=== PATIENT | female | born 1970 | race Caucasian/White ===

== ENCOUNTER 2024-07-08 05:43 | Emergency (ER) | payer OTHER, SELFPAY ==
[2024-07-08 05:44] VITALS: BMI 30.7
[2024-07-08 05:51] VITALS: BP 145/69; PULSE 69; RESP 18; TEMP 36.6; O2SAT 96
--- NOTE | 2024-07-08 06:17 | PC.NURSE ---
PT CAME TO ER FOR C/O CP STARTED AT 0500, PRESSURE PAIN, NON RADIATING, PT THINKS SHE IS HAVING A HEART ATTACK.
--- NOTE | 2024-07-08 06:18 | EDNOTE_ITS ---
ED Chest Pain RME/HPI General Chief Complaint: Chest Pain Stated Complaint: PT STATED I AM HAVING A HEART ATTACK Time Seen by Provider: 07/08/24 06:04 Arrival date/time: 07/08/24 05:43 RME / HPI RME / HPI narrative: This section includes all my notes and documentations, including HPI, PE, and ED course. Howard Meier MD HPI: 53-year-old female here with chest pain. Currently, she reports her chest pain as 6/10. When asked about when her chest pain was 0/10, she reports the chest pain has not been 0/10 for months and years. No headache or dizziness. No neck pain or back pain. No shortness of breath. No abdominal pain. No pain in the limbs. No other complaints. ROS: All negative except as documented in HPI. Physical Exam: General: Alert and oriented. Eyes: Conjunctivae and lids clear. EOMI. PERRL. ENT: No nasal congestion. Neck: Supple. No carotid bruit. No JVD. Heart: RRR. Lungs: No respiratory distress. Good air movement. No rhonchi, wheezing, rales. Chest: No tenderness. Abdomen: Soft and nontender. Back: No tenderness. Legs: No clubbing, cyanosis, edema. Skin: Warm and dry. Neuro: Alert and oriented X 3. Cranial Nerves II-XII grossly intact. No peripheral motor deficits. Musculoskeletal: All major joints and bones are not tender with no limited ROM. I reviewed all diagnostic test results. My interpretation of the EKG is sinus rhythm with nonspecific ST?T changes. My review of the CT scan reports is no acute findings. My review of the GB ultrasound report is cholelithiasis. Blood tests and urine tests are unremarkable including negative troponin and D- dimer. TSH 0.02 (baseline per patient). At this point, diagnoses include chest pain of unclear urology and cholelithiasis. Treatment here included fentanyl. She felt much better. Recommended more outpatient cardiac workup and surgery for possible elective cholecystectomy. Based on my best medical judgment, made decision no further evaluation or treatment indicated at this time. Patient understands and agrees to the discharge instructions customized and printed, see below. Discharge instructions from Dr. Meier: 1. After extensive evaluation, there is no life-threatening condition.? Such as heart attack or pulmonary embolism (blood clots in your lungs) or pneumothorax (collapsed lung). 2. Your symptoms may be due to your gallstones. 3. See a private doctor on 07/10/2024. Ask to review all test results and official radiology reports, to make sure you receive all necessary follow-ups and monitoring. To make sure there is no serious underlying heart condition, ask to help you get more tests for your heart that cannot be done here in the ER.? Such as Holter Monitor (cardiac monitoring at home from a day to even a month), heart stress test (on treadmill or with medication), echocardiogram (imaging of your heart structures), heart catherization (checking for blockages in your heart arteries), and a referral to see a [employer]ice. Ask for a referral to see a surgeon to discuss elective surgery to remove your gallbladder. 4. Seek immediate medical care with worsening or with any concerns.?? Howard Meier MD Related Data Home Medications ?Medication ?Instructions ?Recorded ?Confirmed gabapentin 100 mg capsule 300 mg PO HS 11/27/18 10/18/23 levothyroxine 200 mcg tablet 200 mcg PO QDAY 11/27/18 10/18/23 (Synthroid) aspirin 81 mg tablet,delayed 81 mg PO QDAY 04/09/21 10/18/23 release hydrocodone 10 mg-acetaminophen 1 tab PO BID PRN Pain 04/09/21 10/18/23 325 mg tablet ipratropium 20 mcg-albuterol 100 1 puff inhalation BID 04/09/21 10/18/23 mcg/actuation mist for inhalation (Combivent Respimat) atorvastatin 80 mg tablet (Lipitor) 80 mg PO QPM 10/18/23 10/18/23 coenzyme Q10 100 mg capsule 200 mg PO HS 10/18/23 10/18/23 (CoQ-10) hydrochlorothiazide 25 mg tablet 25 mg PO QDAY 10/18/23 10/18/23 isosorbide mononitrate 60 mg 60 mg PO QDAY 10/18/23 10/18/23 tablet,extended release 24 hr metoprolol succinate 100 mg 100 mg PO QDAY 10/18/23 10/18/23 tablet,extended release 24 hr metoprolol succinate 50 mg 50 mg PO HS 10/18/23 10/18/23 tablet,extended release 24 hr ranolazine 500 mg tablet,extended 500 mg PO Q12H 10/18/23 10/18/23 release,12 hr Previous Rx's ?Medication ?Instructions ?Recorded clopidogrel 75 mg tablet 75 mg PO QDAY #30 tabs 04/11/21 Allergies Allergy/AdvReac Type Severity Reaction Status Date / Time NSAIDS (Non-Steroidal Allergy Intermediate Gastrointestinal Verified 10/20/23 08:28 Anti-Inflamma Upset midazolam AdvReac Severe Vomiting Verified 10/20/23 08:28 morphine AdvReac Severe SEVERE RIDDLE Verified 10/20/23 08:28 Course Quality Measures none Orders Category Date Time Status CT Screening NOW Care 07/08/24 06:23 Completed EKG (ED ONLY) *Do not use* NOW Care 07/08/24 05:45 Completed EKG (ED ONLY) *Do not use* NOW Care 07/08/24 06:22 Completed Saline [Insert IV] NOW Care 07/08/24 06:21 Completed Straight [In and Out Catheter] X1 Care 07/08/24 06:[address] abdomen pelvis w con Stat Exams 07/08/24 06:[address] angio chest Stat Exams 07/08/24 06:[address] cervical spine wo con Stat Exams 07/08/24 06:[address] head/brain wo con Stat Exams 07/08/24 06:[address] lumbar spine wo con Stat Exams 07/08/24 06:[address] thoracic spine wo con Stat Exams 07/08/24 06:23 Completed EKG (ED Only) Stat Exams 07/08/24 05:45 Ordered EKG (ED Only) Stat Exams 07/08/24 06:22 Ordered US gall bladder Stat Exams 07/08/24 09:00 Completed XR chest 1V portable Stat Exams 07/08/24 06:22 Completed BNP [B-Type Natriuretic Peptide] Stat Lab 07/08/24 06:30 Completed CBC Stat Lab 07/08/24 06:30 Completed CMP [Comprehensive Metabolic Panel] Stat Lab 07/08/24 06:30 Completed D-Dimer Stat Lab 07/08/24 06:30 Completed Magnesium Stat Lab 07/08/24 06:30 Completed TSH [Thyroid Stimulating Hormone] Stat Lab 07/08/24 06:30 Completed Troponin I Stat Lab 07/08/24 06:30 Completed UA [Urinalysis] Stat Lab 07/08/24 09:25 Completed Ondansetron Inj [Zofran Inj] Med 07/08/24 06:22 Discontinued 4 mg IV X1 ONE fentaNYL INJ [Sublimaze Inj] Med 07/08/24 08:56 Discontinued 100 mcg IV X1 ONE fentaNYL INJ [Sublimaze Inj] Med 07/08/24 06:22 Discontinued 50 mcg IV X1 ONE Vital Signs Vital signs: Vital Signs Temperature 97.8 F 07/08/24 05:51 Pulse Rate 69 07/08/24 05:51 Respiratory Rate 18 07/08/24 05:51 Blood Pressure 145/69 H 07/08/24 05:51 Pulse Oximetry (%) 96 07/08/24 05:51 Oxygen Delivery Method Room Air 07/08/24 05:51 Chest Pain Patient data External records reviewed:: [facility] previous records Clinical information provided by:: patient and parent Social determinants that could affect healthcare access:: none Patient has the following chronic illnesses:: CAD and HTN How is presenting disease/condition affected by chronic disease/condition?: exacerbated by Evaluation data The following diagnostics were reviewed and interpreted by me:: lab results, radiology exam(s) and EKG tracing(s) (My interpretation of the EKG is: Sinus rhythm (67 bpm) with nonspecific ST-T changes. Howard Meier MD) Lab and/or radiology exams considered but not ordered:: None Interpretation Summary: Chest pain of unclear etiology and cholelithiasis Medications / Prescriptions Medications or Prescriptions considered but not ordered:: None Medication administrations:: Medication Administration History Discontinued Medications Fentanyl Citrate (Fentanyl Cit Inj 50 Mcg/Ml Amp 2ml) 50 mcg IV X1 ONE Stop: 07/08/24 06:23 Last Admin: 07/08/24 07:43 Dose: 50 mcg Documented By: ARIELA Fentanyl Citrate (Fentanyl Cit Inj 50 Mcg/Ml Amp 2ml) 100 mcg IV X1 ONE Stop: 07/08/24 08:57 Last Admin: 07/08/24 09:37 Dose: Not Given Documented By: ARIELA Non-Admin Reason: Patient Refused Ondansetron HCl (Ondansetron Inj 2 Mg/Ml Inj 2 Ml) 4 mg IV X1 ONE; Protocol Stop: 07/08/24 06:23 Last Admin: 07/08/24 07:41 Dose: 4 mg Documented By: ARIELA Fentanyl Consultations Consultation(s) initiated? (list below): No Diagnosis Chest Pain Differential Diagnosis: fracture of rib, pneumothorax, stable angina, unstable angina pectoris, atypical chest pain, st elevation myocardial infarction, costochondritis, chest pain and biliary colic Most likely diagnosis given after review of the tests above:: Chest pain of unclear etiology and cholelithiasis Admission Indicated Admission indicated?: not indicated Explain why admission is indicated or not indicated:: Admission criteria not met Admission Request Was there a request for admission?: No Disposition Plan Disposition Plan: Discharge Discharge Attestation Discharge Attestation: The patient and all family members were given an opportunity to ask questions and understood the discharge instructions. Discharge instructions specifically effects, indications for sooner follow up or return to the emergency department, and the expected course of current diagnosis. Patient condition: Stable Discharge Plan Plan Patient Disposition: HOME (Self Care) Prescriptions/Referrals Prescriptions/Med Rec: No Action levothyroxine [Synthroid] 200 mcg Tablet 200 mcg PO QDAY gabapentin 100 mg Capsule 300 mg PO HS hydrocodone-acetaminophen 10-325 mg tablet 1 tab PO BID PRN (Reason: Pain) aspirin 81 mg Tablet,Delayed Release (Dr/Ec) 81 mg PO QDAY Combivent Respimat 20-100 mcg/actuation mist 1 puff INHALATION BID clopidogrel 75 mg tablet 75 mg PO QDAY Qty: 30 0RF atorvastatin [Lipitor] 80 mg Tablet 80 mg PO QPM metoprolol succinate 50 mg Tablet Extended Release 24 Hr 50 mg PO HS metoprolol succinate 100 mg Tablet Extended Release 24 Hr 100 mg PO QDAY isosorbide mononitrate 60 mg Tablet Extended Release 24 Hr 60 mg PO QDAY hydrochlorothiazide 25 mg Tablet 25 mg PO QDAY coenzyme Q10 [CoQ-10] 100 mg Capsule 200 mg PO HS ranolazine 500 mg Tablet Extended Release 12 Hr 500 mg PO Q12H Referrals: Estrella Ballard MD [Primary Care Provider] - In 1 week Problem List Clinical Impression: Chest pain, Gallstones Patient/Caregiver Discharge Instructions Discharge Activity: activity as tolerated Education Materials: ED Chest Pain, Uncertain Cause, ED Gallstones with Biliary Colic Additional Instructions: Discharge instructions from Dr. Meier: 1. After extensive evaluation, there is no life-threatening condition.? Such as heart attack or pulmonary embolism (blood clots in your lungs) or pneumothorax (collapsed lung). 2. Your symptoms may be due to your gallstones. 3. See a private doctor on 07/10/2024. Ask to review all test results and official radiology reports, to make sure you receive all necessary follow-ups and monitoring. To make sure there is no serious underlying heart condition, ask to help you get more tests for your heart that cannot be done here in the ER.? Such as Holter Monitor (cardiac monitoring at home from a day to even a month), heart stress test (on treadmill or with medication), echocardiogram (imaging of your heart structures), heart catherization (checking for blockages in your heart arteries), and a referral to see a [employer]ic Apprentice. Ask for a referral to see a surgeon to discuss elective surgery to remove your gallbladder. 4. Seek immediate medical care with worsening or with any concerns.?? Print Language: Swedish Stand Alone Forms: [facility] Award Info., Patient Portal Info Letter
--- NOTE | 2024-07-08 06:22 | XR_ITS ---
Examination: CT cervical spine without contrast 2-D sagittal reconstructions 2-D coronal reconstructions 3-D reconstructions. Exam date and time: July 08, 2024 0642 hrs. Indications: Onset chest pain neck pain syncopal episode today, patient fell 10 hours ago with injury to the neck CTDI:vol (mGy) 7.25 DLP: (mGycm) 148 Technique: Multiple 2 mm axial sections of the cervical spine have been obtained. The coronal and sagittal reconstructions have been obtained. 3-D reconstructions have been obtained. Low dose protocols were performed. One or more of the following dose reduction techniques were used; automated exposure control, adjustment of the mA and/or KV according to patient size, use of iterative reconstruction technique. Findings: Axial sections demonstrate intact base of the skull. C1 exhibit satisfactory relationship to the odontoid. No acute cervical vertebral body fracture seen. Alignment posterior spinous processes satisfactory. Significant degenerative disc disease C4-C5, C5-C6 7 mm radiolucency in the C7 posterior spinous process Impression: No acute cervical fracture. 7 mm radiolucent area in the C7 posterior spinous process, sagittal image 49, recommend 3 month follow-up plain film cervical spine series to document stability of this radiolucency
--- NOTE | 2024-07-08 06:22 | XR_ITS ---
Examination: AP chest single view Technique: AP portable upright chest single view Exam date and time: July 08, 2024 at 0659 hrs. Indications: Shortness of breath today. Findings: Normal heart size. Lungs are clear. Moderate osteopenia Impression: No active disease
--- NOTE | 2024-07-08 06:23 | XR_ITS ---
Examination: CT abdomen with intravenous contrast CT pelvis with intravenous contrast 2-D coronal reconstructions 2-D sagittal reconstructions Date and time of exam:July 08, 2024 0801 hrs. Comparison November 27, 2018 Indications: Onset abdominal pain dizziness epigastric pain beginning this morning. CTDI: vol (mGy) 14.4 DLP: (mGycm) 762 Technique: Multiple axial sections of the abdomen and pelvis have been obtained. 64 slice high-resolution scanner used. 3 mm axial sections have been obtained, post intravenous injection 100 cc [id number]-370 2-D sagittal, coronal reconstructions obtained. Low dose protocols were performed. One or more of the following dose reduction techniques were used; automated exposure control, adjustment of the mA and/or KV according to patient size, use of iterative reconstruction technique. Findings: 12 mm calcified granuloma right lower lobe No focal liver lesions, hepatomegaly 20 cm Cholelithiasis, gallbladder wall appears mildly thickened axial image 75 No pancreatic or adrenal mass No renal or ureteral calculi, no hydronephrosis Dense abdominal aortic calcification no aneurysmal dilatation No bowel obstruction No pericecal inflammatory change No diverticulitis Anteverted uterus no adnexal mass Small left ovarian follicular cyst Urinary bladder intact Moderate osteopenia Impression: Hepatomegaly 20 cm no focal liver lesions Cholelithiasis Recommend hepatobiliary sonography follow-up to exclude cholecystitis
--- NOTE | 2024-07-08 06:23 | XR_ITS ---
Examination: CT thoracic spine, without contrast. 2-D sagittal reconstructions. 2-D coronal reconstructions. 3-D reconstructions. Date and time of exam:July 08, 2024 0651 hrs. Indications: Patient fell 10 hours ago with injury to the mid back, mid back pain CTDI: vol (mGy):22.3 DLP: (mGycm):749 Technique: Multiple 1.25 mm axial sections of the thoracic spine without intravenous contrast have been obtained. 2-D sagittal and coronal reconstructions have been obtained. 3-D reconstructions have been obtained. Low dose protocols were performed. One or more of the following dose reduction techniques were used; automated exposure control, adjustment of the mA and/or KV according to patient size, use of iterative reconstruction technique. Findings: Moderate osteopenia Satisfactory alignment thoracic vertebral bodies on the lateral view No thoracic vertebral body compression fracture Thoracic pedicles, laminae, transverse and posterior spinous processes intact Soft tissue settings demonstrate no focal thoracic disc protrusion Impression: No acute thoracic fracture
--- NOTE | 2024-07-08 06:23 | XR_ITS ---
Examination: CT lumbar spine, without contrast. 2-D sagittal reconstructions. 2-D coronal reconstructions. 3-D reconstructions. Date and time of exam:July 08, 2024 0651 hrs. Indication: Patient fell 10 hours ago with injury to lower back, lower back pain CTDI: vol (mGy):20.3 DLP: (mGycm):764 Technique: Multiple 1.25 mm axial sections of the lumbar spine without intravenous contrast have been obtained. 2-D sagittal and coronal reconstructions have been obtained. 3-D reconstructions have been obtained. Low dose protocols were performed. One or more of the following dose reduction techniques were used; automated exposure control, adjustment of the mA and/or KV according to patient size, use of iterative reconstruction technique. 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
--- NOTE | 2024-07-08 06:23 | XR_ITS ---
Examination: CT brain head without contrast. 2-D sagittal coronal reconstructions Date and time of exam:July 08, 2024 0642 hrs. Comparison 04/09/2021 Indications: Patient fell 10 hours ago with injury to the head, head pain CTDI: vol (mGy):48.9 DLP: (mGycm):974 Technique: Multiple CT axial sections of the brain have been obtained, 5 mm slice thickness. Contrast has not been administered. 2-D sagittal, coronal reconstructions have been obtained Low dose protocols were performed. One or more of the following dose reduction techniques were used; automated exposure control, adjustment of the mA and/or KV according to patient size, use of iterative reconstruction technique. Findings: No significant ventricular enlargement. Intra-axial or extra-axial hemorrhage density is not seen. No mass effect or midline shift Basal cisterns are not remarkable. Fourth ventricle is midline. Cranial vault intact. Stable small calcification in the left sylvian fissure compared with 04/09/2021 Impression: Negative for acute hemorrhage, mass effect or midline shift
--- NOTE | 2024-07-08 06:24 | XR_ITS ---
Examination: CTA chest with intravenous contrast 2-D reconstructions 3-D reconstructions, vascular Date and time of exam: July 08, 2024 0801 hrs. Indications: Shortness of breath chest pain syncopal episodes beginning this morning CTDI: vol (mGy) 11.4 DLP: (mGycm) 400 Technique: Multiple axial sections of the thorax have been obtained. 3 mm slice thickness, from below the hemidiaphragms to above the apices of the lungs. Mediastinal and lung density settings have been obtained. 2-D sagittal and coronal reconstructions. 3-D angiographic renderings, 3-D volume renderings, 3D post processing, vascular maximum intensity projections obtained. Contrast administered is 100 cc Isovue-370 intravenous. Low dose protocols were performed. One or more of the following dose reduction techniques were used; automated exposure control, adjustment of the mA and/or KV according to patient size, use of iterative reconstruction technique. Findings: Bilateral calcified thyroid nodules Heavy thoracic aortic calcification, no aneurysmal dilatation Pulmonary artery segments are not enlarged No pulmonary artery emboli Mild enlargement left atrium left ventricle Mitral valvular calcification No paratracheal tracheobronchial or bronchopulmonary adenopathy 3 mm pulmonary nodule right upper lobe image 173 Calcified granuloma left lower lobe 3 mm pulmonary nodule left lower lobe image 218 No pneumonia or pulmonary edema Mild diffuse thoracic degenerative disc disease Impression: No thoracic aortic aneurysmal dilatation Negative for pulmonary artery emboli Noncalcified pulmonary nodules as above, with this study as baseline recommend 6 month follow-up CT chest without contrast to document stability of the subcentimeter pulmonary nodules described above
[2024-07-08 06:40] LABS: Basophils # (Auto) 0.1 Thou/mm3 (0.0-0.2); Basophils % (Auto) 1 % (0-2.5); Eosinophils % (Auto) 7 % (0-10); Hemoglobin 14.3 g/dL (12.0-16.0); Immature Granulocytes % (Auto) 0 % (0-0); Immature Granulocytes Auto 0.04 Thou/mm3 (0.00-0.00); Lymphocytes # (Auto) 3.2 Thou/mm3 (1.0-4.8); Lymphocytes % (Auto) 22 % (10-50); Mean Corpuscular HGB Conc 33.3 g/dl (31.0-37.0); Mean Corpuscular Hemoglobin 30.3 pg (25.0-35.0); Mean Corpuscular Volume 91 fL (80-100); Monocytes % (Auto) 7 % (0-12); Neutrophils # (Auto) 9.1 Thou/mm3 (1.8-7.7); Neutrophils % (Auto) 63 % (37-80); Nucleated Red Blood Cell % 0 /100 WBC (0); Platelet Count 488 Thou/mm3 (140-440); Red Blood Count 4.72 Miln/mm3 (4.00-5.20); White Blood Count 14.4 Thou/mm3 (3.6-11.0)
[2024-07-08 07:03] LABS: Alanine Aminotransferase 19 U/L (10-49); Albumin, Serum 4.5 gm/dL (3.5-5.0); Albumin/Globulin Ratio 1.8 (1.2-2.2); Alkaline Phosphatase 87 U/L (46-116); Anion Gap 8 (7-16); Aspartate Amino Transferase 22 U/L (0-34); BUN/Creatinine Ratio 20 Ratio (12-20); Bilirubin,Total 0.9 mg/dL (0.3-1.2); Blood Urea Nitrogen 16 mg/dL (9-23); Calcium 9.4 mg/dL (8.3-10.6); Calcium (Corrected) 9.4 mg/dL (8.5-10.1); Carbon Dioxide 27.1 mMol/L (20.0-31.0); Chloride 103 mMol/L (98-107); Creatinine (Component) 0.8 mg/dL (0.6-1.3); Estimated Creatinine Clearance 89.9 mL/min (>60); Globulin 2.5 gm/dL (2.3-3.5); Glucose 110 mg/dL (74-106); Magnesium 2.1 mg/dL (1.6-2.6); Osmolality,Calculated 277 (275-295); Potassium 3.5 mMol/L (3.4-5.1); Sodium 138 mMol/L (136-145); Thyroid Stimulating Hormone 0.02 uIU/mL (0.55-4.78); Troponin I 0.041 ng/mL (0.0-0.045); eGFR > 60 See Note
[2024-07-08] MEDS: ONDANSETRON INJ 2 MG/ML INJ 2 ML 4 MG IV (07:41)
[2024-07-08] MEDS: fentaNYL CIT INJ 50 mCg/ML AMP 2ML IV (07:43)
[2024-07-08 08:13] LABS: D-Dimer < 250 ng/mL (<600)
[2024-07-08 08:23] LABS: B-Type Natriuretic Peptide 274 pg/mL (0-100)
[2024-07-08 08:41] VITALS: BP 141/56; PULSE 78; RESP 17; TEMP 36.8; O2SAT 94
--- NOTE | 2024-07-08 09:00 | XR_ITS ---
Examination: Abdomen sonogram, Limited Date and time of exam: July 08, 2024 0927 hrs. Indications: CT abdomen pelvis study today cholelithiasis, thickened gallbladder wall, epigastric chest pain today Technique: Real-time harris scale transabdominal sonographic images of the upper abdomen obtained. Findings: 33 mm gallstone Gallbladder wall 0.2 cm no edema Common bile duct 0.5 cm Pancreatic head 1.9 cm Hepatomegaly 17.4 cm no focal liver lesions Normal hepatopedal portal venous flow Patent IVC Impression: Cholelithiasis, negative for cholecystitis
[2024-07-08 09:12] VITALS: BP 138/75; PULSE 73; RESP 16; TEMP 36.7; O2SAT 95
[2024-07-08 09:36] LABS: Collection Type, Urine Clean Catch
[2024-07-08 09:57] LABS: Bilirubin,Urine Negative (Negative); Blood,Urine Negative (Negative); Clarity,Urine Clear (Clear/Hazy); Color,Urine Yellow (Lt Yel-Yel); Glucose, Urine Negative (Negative); Ketones,Urine Negative (Negative); Leukocyte Esterase,Urine Negative (Negative); Nitrite,Urine Negative (Negative); PH,Urine 6.5 (5.0-7.0); Protein,Urine Negative (Neg - Trace); RBC,Urine 5 /hpf (0-3); Squamous Epithelial Cell,Urine 4 /hpf (0-5); Urobilinogen,Urine Negative mg/dL (0.0-1.0); WBC,Urine 1 /hpf (0-5)
== END 2024-07-08 10:40 | disposition home or self-care (01) ==
PROVIDERS: Emergency Provider Emergency Medicine; PCP Family Medicine
DX: K80.20 Calculus of gallbladder without cholecystitis without obstruction (principal); R07.9 Chest pain, unspecified
CPT/HCPCS: 36415; 70450; 71045; 71275; 72125; 72128; 72131; 74177; 76705; 80053; 81001; 83735; 83880; 84443; 84484; 85025; 85379; 93005; 96374; 99285; A4649; J2405; J3010; Q9967

== ENCOUNTER 2024-07-13 07:57 | Outpatient (RCR) | payer OTHER, SELFPAY ==
--- NOTE | 2024-07-13 10:57 | CTCCONSULT_ITS ---
[facility] [address] [place], [place] [address] Consultation Note Date: 07/13/2024 MR#: [id number] Name: MK TOWNSEND : 1970 Dx: M85.88 Other specified disorders of bone density and structure, other site C81.78 Classical Hodgkin's lymphoma. Referring physician. Yanni Yeung NP Reason for consultation. Patient with malignant appearing lesion in sacrum in someone with history o f Hodgkin's lymphoma treated with radiation therapy. History of Present Illness: Patient was diagnosed with Hodgkin's lymphoma 30 years ago reportedly sta ge IIb and was treated via mantle field at [place] which included the area of the chest along with a xilla and neck. She did not get chemo. In remission and apparently cured after 30 years. There has been concern about complications including, acute NH 2020 and subsequent stent placement right coron josiah artery thought to be related to long-term side effects of prior radiation therapy.. Underwent an gioplasty of right coronary artery for restenosis earlier this year. Patient came into the ER after falling and with chest symptoms and had scans done 07/08/2024 and there were noncalcified pulmonary n odules noted previously on chest CT with lumbar CT showing 37 x 24 mm osteolytic lesion right first s acral wing, and 7 mm radiolucency C7. MRI pelvis pre and postcontrast was recommended. Labs at the ER shows marked elevated white count of 14.4 14.3 hemoglobin platelets 4 88,000. TSH was low at 0.02 . Renal function tests were not abnormal. Patient now referred for oncological consultation. Morales nt states that she recently visited Dr. Cook and was in A-fib but this reportedly converted to sinus rhythm spontaneously. Past Medical History: History of Hodgkin's lymphoma stage IIb treated over 30 years ago at [place] w ith radiation therapy no sign of recurrence. History of hypothyroidism valley fever prior MRI gallst ones chickenpox bronchitis Meds. Metoprolol amiodarone ranolazine Plavix hydrochlorothiazide Synthroid aspirin Neurontin atorva statin Allergies benzodiazepine morphine causing nausea vomiting symptoms Family history. 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 Last mense s February 2024. Review of Systems: Patient with cardiac conditions has intermittent chest pains being followed by car diologist. Has generalized body pains but no increased pain since the fall. Has had headaches nause a sleep problem palpitations shortness of breath with exertion. Has had weight loss but this was bec ause she is on a weight loss program. Physical Exam: General: Well-appearing lady in no acute distress HEENT: Atraumatic normocephalic extraocular is intact no oral lesion no cervical or supraclavicular a denopathy. CV: Chest good auscultation heart regular rate and rhythm ABD: Soft organomegaly or tenderness Musculoskeletal. Mild tenderness in the right sacral region as opposed to the left. Assessment:1. History of radiation therapy for Hodgkin's lymphoma over 30 years ago at [facility] h included the area of the chest with subsequent likely cardiac complications noted above. Being fol lowed by corporate buyer Dr. Jeovanny Cook 2. Exposure to prior radiation therapy can result in second malignancy in rare cases including multi ple myeloma. Recent scan shows lytic areas in sacrum and C-spine. 3. Shall order MRI of the pelvis with and without contrast along with general bone survey. 4. Serum protein electrophoresis serum immunofixation beta 2 microglobulin quantitative immunoglobul in 5. Follow-up in 4 weeks. 6. Thank you for allowing me to evaluate this patient Cc: Jamin Yeung NP/Estrella Cook Electronically signed by: Vijay Meier MD, DABR 07/13/2024 10:55 AM
== END 2024-07-25 23:59 | disposition home or self-care (01) ==
LOC: SCTC 07:57
PROVIDERS: PCP Registered Nurse; Referring Provider Registered Nurse; Visit Provider Radiology Therapeutic Radiology
DX: M89.8X8 Other specified disorders of bone, other site (principal); Z85.71 Personal history of Hodgkin lymphoma; Z92.3 Personal history of irradiation
CPT/HCPCS: 99213; G0463

== ENCOUNTER → 2024-08-01 | Outpatient (CLI) | payer OTHER, SELFPAY ==
[2024-08-01 10:35] LABS: Basophils # (Auto) 0.1 Thou/mm3 (0.0-0.2); Basophils % (Auto) 1 % (0-2.5); Eosinophils # (Auto) 0.6 Thou/mm3 (0.0-0.5); Eosinophils % (Auto) 6 % (0-10); Hematocrit 37.8 % (36.0-46.0); Hemoglobin 12.3 g/dL (12.0-16.0); Immature Granulocytes % (Auto) 0 % (0-0); Immature Granulocytes Auto 0.04 Thou/mm3 (0.00-0.00); Lymphocytes # (Auto) 2.9 Thou/mm3 (1.0-4.8); Lymphocytes % (Auto) 30 % (10-50); Mean Corpuscular HGB Conc 32.5 g/dl (31.0-37.0); Mean Corpuscular Hemoglobin 29.9 pg (25.0-35.0); Mean Corpuscular Volume 92 fL (80-100); Monocytes # (Auto) 0.7 Thou/mm3 (0.0-0.8); Monocytes % (Auto) 7 % (0-12); Neutrophils # (Auto) 5.1 Thou/mm3 (1.8-7.7); Neutrophils % (Auto) 54 % (37-80); Nucleated Red Blood Cell % 0 /100 WBC (0); Platelet Count 655 Thou/mm3 (140-440); RDW Standard Deviation 49.1 fL (36.4-46.3); Red Blood Count 4.12 Miln/mm3 (4.00-5.20); White Blood Count 9.5 Thou/mm3 (3.6-11.0)
[2024-08-01 10:46] LABS: HCG Qualitative,Urine Negative
[2024-08-01 11:07] LABS: Alanine Aminotransferase 25 U/L (10-49); Albumin/Globulin Ratio 1.7 (1.2-2.2); Alkaline Phosphatase 80 U/L (46-116); Anion Gap 6 (7-16); Aspartate Amino Transferase 25 U/L (0-34); BUN/Creatinine Ratio 19 Ratio (12-20); Bilirubin,Direct < 0.1 mg/dL (0.0-0.3); Bilirubin,Total 0.2 mg/dL (0.3-1.2); Blood Urea Nitrogen 15 mg/dL (9-23); Calcium 9.3 mg/dL (8.3-10.6); Calcium (Corrected) 9.3 mg/dL (8.5-10.1); Carbon Dioxide 29.6 mMol/L (20.0-31.0); Chloride 103 mMol/L (98-107); Creatinine (Component) 0.8 mg/dL (0.6-1.3); Globulin 2.4 gm/dL (2.3-3.5); Glucose 93 mg/dL (74-106); Osmolality,Calculated 278 (275-295); Potassium 4.5 mMol/L (3.4-5.1); Sodium 139 mMol/L (136-145); Total Protein 6.4 gm/dL (5.7-8.2); eGFR > 60 See Note
[2024-08-07 03:06] LABS: Albumin 3.2 g/dL (3.8-4.8); Alpha-1-Globulin 0.3 g/dL (0.2-0.3); Alpha-2-Globulin 0.9 g/dL (0.5-0.9); Beta-1-Globulin 0.4 g/dL (0.4-0.6); Beta-2-globulin 0.4 g/dL (0.2-0.5); Gamma Globulin 0.9 g/dL (0.8-1.7); Immunoglobulin A 298 mg/dL (47-310); Immunoglobulin G 973 mg/dL (600-1640)
[2024-08-07 07:01] LABS: Beta 2 Microglobulin 2.05 mg/L (< OR = 2.51); Immunoglobulin M 39 mg/dL (50-300); Protein, total, serum 6.2 g/dL (6.1-8.1)
== END | disposition home or self-care (01) ==
PROVIDERS: PCP Family Medicine; Referring Provider Radiology Therapeutic Radiology; Visit Provider Internal Medicine Cardiovascular Disease
DX: M85.88 Other specified disorders of bone density and structure, other site (principal); C81.78 Other Hodgkin lymphoma, lymph nodes of multiple sites; Z32.00 Encounter for pregnancy test, result unknown; I48.21 Permanent atrial fibrillation
CPT/HCPCS: 36415; 80053; 81025; 82232; 82248; 82784; 84155; 84165; 85025; 86334

== ENCOUNTER → 2024-08-02 | Outpatient (CLI) | payer OTHER, SELFPAY ==
--- NOTE | 2024-08-02 10:00 | XR_ITS ---
Examination: MRI 17 with intravenous contrast. MRI pelvis without intravenous contrast. Date and time of exam: August 02, 2024 1122 hours INDICATIONS: Diagnosis Hodgkin's lymphoma CT abdomen pelvis July 08, 2024 4 abdominal epigastric pain Technique: Multiple axial, sagittal and coronal sections of the pelvis obtained. Transverse images, TR 6020, TE 107. T1 weighted transverse images, TR 582, TE 9.5. T2-weighted sagittal images, TR 4000, TE 105. T2-weighted sagittal images, TR 4000, TE 5. Coronal images, TR 4210, TE 107. Axial and coronal images are obtained post 17 cc intravenous injection, gadolinium. Findings: No common iliac and external iliac internal iliac or common femoral lymphadenopathy Anteverted uterus no uterine mass No adnexal mass Contracted urinary bladder No free fluid in the pelvis Adequate marrow signal bones of the pelvis and sacrum No presacral fluid Postcontrast images demonstrate no abnormal enhancing uterine mass IMPRESSION: No pathologic pelvic lymphadenopathy
== END | disposition home or self-care (01) ==
PROVIDERS: PCP Family Medicine; Referring Provider Radiology Therapeutic Radiology; Visit Provider Radiology Therapeutic Radiology
DX: M85.88 Other specified disorders of bone density and structure, other site (principal); C81.78 Other Hodgkin lymphoma, lymph nodes of multiple sites
CPT/HCPCS: 72197; A9579

== ENCOUNTER 2024-08-10 08:33 | Outpatient (RCR) | payer OTHER, SELFPAY ==
--- NOTE | 2024-08-10 09:32 | CTCFLWUP_ITS ---
[facility] [address] [place], [place] [address] FOLLOW-UP NOTE Date: 08/10/2024 MR#: [id number] Name: MK TOWNSEND : 1970 Dx: M85.88 Other specified disorders of bone density and structure, other site Identification. Patient with history of Hodgkin's lymphoma diagnosed over 30 years ago and treated a [facility] [place] with radiation therapy to head and neck and chest sites. At various site of including dental problems and cardiac with prior CT being followed by Dr. Cook. Recently patient was seen in the ER and had various scans which showed prominent osteolytic lesion ri ght first sacral wing and smaller radiolucency C7. Just had MRI of the pelvis performed a week ago revealing osteolytic area confirmed in pelvic MRI whi ch did not enhance and postcontrast images. Biopsy of this area was recommended. Blood tests 08/01/2024 SPEP showing 1 faint restricted band migra ting in the gamma region and no monoclonal proteins detected by immunofixation studies. Beta microgl obulin was low at 2.05. Biopsy of the right sacrum will be performed and we will see patient back in 6 weeks time. Bone surv ey also pending. Electronically signed by: Vijay Meier M.D. 08/10/2024 9:30 AM
== END 2024-08-25 23:59 | disposition home or self-care (01) ==
LOC: SCTC 08:33
PROVIDERS: PCP Family Medicine; Referring Provider Family Medicine; Visit Provider Radiology Therapeutic Radiology
DX: M89.58 Osteolysis, other site (principal); Z85.71 Personal history of Hodgkin lymphoma
CPT/HCPCS: 99213; G0463

== ENCOUNTER → 2024-08-31 | Outpatient (CLI) | payer OTHER, SELFPAY ==
--- NOTE | 2024-08-31 12:28 | XR_ITS ---
Examination: Metastatic bone survey, 15 views TECHNIQUE: Tami lateral skull, AP pelvis, lateral cervical thoracic lumbar spine, AP right humerus AP left humerus AP right forearm AP left forearm AP right femur AP left femur AP right lower leg AP left lower leg PA chest total 15 views Exam date and time: August 31, 2024 1405 hours INDICATIONS: Diagnosis Hodgkin's lymphoma 37 x 24 mm osteolytic lesion right first sacral wing on CT lumbar spine July 08, 2024 FINDINGS: Cranial vault intact with hyperostosis frontalis interna 8mm radiolucency in the intertrochanteric region left hip Advanced degenerative disc disease C4-C5, C5-C6 No vertebral body compression fracture Humerus forms right and left hips and femoral shaft intact as well as tibia fibula Normal heart size 11 mm pulmonary nodule left lower lobe IMPRESSION: Recommend follow-up AP view of the pelvis Recommend lordotic chest follow-up to exclude 11 mm pulmonary nodule left upper lobe
== END | disposition home or self-care (01) ==
PROVIDERS: PCP Family Medicine; Referring Provider Radiology Therapeutic Radiology; Visit Provider Radiology Therapeutic Radiology
DX: R93.7 Abnormal findings on diagnostic imaging of other parts of musculoskeletal system (principal); R91.8 Other nonspecific abnormal finding of lung field; C81.78 Other Hodgkin lymphoma, lymph nodes of multiple sites
CPT/HCPCS: 77074

== ENCOUNTER 2024-09-07 09:07 | Outpatient (CLI) | payer OTHER, SELFPAY ==
[2024-09-07] VITALS (10 sets, daily range): BP systolic 139–170; BP diastolic 41–59; PULSE 57–61; RESP 13–25; TEMP 36.4–37.1; O2SAT 94–99; BMI 33.4
--- NOTE | 2024-09-07 09:30 | XR_ITS ---
Examination: CT-guided percutaneous biopsy osteolytic right sacral lesion CT pelvis without intravenous contrast Date and time of procedure: September 07, 2024 1058 hours INDICATIONS: Osteolytic lesion right sacrum on CT abdomen pelvis study July 08, 2024 Informed consent provided. A timeout was completed verifying correct patient, procedure, site and positioning. Technique: Axial 3 mm sections were obtained for localization of the lung abnormality. Appropriate area is marked. The patient's site was prepped and draped in sterile fashion Maximal sterile barrier technique utilized, including hand hygiene Local anesthesia was obtained with 1% lidocaine. Low dose protocols were performed. One or more of the following dose reduction techniques were used; automated exposure control, adjustment of the mA and/or KV according to patient size, use of iterative reconstruction technique. Utilizing CT fluoroscopic guidance 3 core biopsies obtained of the osteolytic lesion right sacrum Patient appears in stable condition during this procedure. At completion of the procedure, the patient is in satisfactory condition. Estimated blood loss 0 cc Complete pathology report to follow. Impression: Successful CT-guided percutaneous biopsy osteolytic right sacral lesion
[2024-09-07 09:50] LABS: Basophils # (Auto) 0.1 Thou/mm3 (0.0-0.2); Basophils % (Auto) 1 % (0-2.5); Eosinophils # (Auto) 0.3 Thou/mm3 (0.0-0.5); Eosinophils % (Auto) 3 % (0-10); Hematocrit 37.9 % (36.0-46.0); Hemoglobin 12.3 g/dL (12.0-16.0); Immature Granulocytes % (Auto) 0 % (0-0); Immature Granulocytes Auto 0.02 Thou/mm3 (0.00-0.00); Lymphocytes # (Auto) 2.9 Thou/mm3 (1.0-4.8); Lymphocytes % (Auto) 32 % (10-50); Mean Corpuscular HGB Conc 32.5 g/dl (31.0-37.0); Mean Corpuscular Hemoglobin 29.3 pg (25.0-35.0); Mean Corpuscular Volume 90 fL (80-100); Monocytes # (Auto) 0.7 Thou/mm3 (0.0-0.8); Monocytes % (Auto) 8 % (0-12); Neutrophils % (Auto) 56 % (37-80); Nucleated Red Blood Cell % 0 /100 WBC (0); Platelet Count 476 Thou/mm3 (140-440); RDW Standard Deviation 48.4 fL (36.4-46.3); White Blood Count 9.1 Thou/mm3 (3.6-11.0)
[2024-09-07 10:09] LABS: HCG,Qualitative Serum Negative
[2024-09-07 10:10] LABS: Partial Thromboplastin Time 25.7 Seconds (22.0-36.0)
[2024-09-07 10:12] LABS: Blood Urea Nitrogen 15 mg/dL (9-23); Creatine Kinase 86 U/L (34-171)
[2024-09-07] MEDS: SODIUM CHLORIDE 0.9% 500 ML 500 ML 20 ML IV (10:55)
[2024-09-07] MEDS: fentaNYL CIT INJ 50 mCg/ML AMP 2ML 75 MCG IVP (11:18)
--- NOTE | 2024-09-07 16:25 | PC.NURSE ---
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
== END 2024-09-07 12:36 | disposition home or self-care (01) ==
PROVIDERS: Radiology Diagnostic Radiology; PCP Family Medicine; Referring Provider Radiology Therapeutic Radiology; Visit Provider Radiology Therapeutic Radiology
DX: C79.51 Secondary malignant neoplasm of bone (principal); C81.78 Other Hodgkin lymphoma, lymph nodes of multiple sites; C81.28 Mixed cellularity Hodgkin lymphoma, lymph nodes of multiple sites; Z01.812 Encounter for preprocedural laboratory examination
CPT/HCPCS: 10009; 36415; 77012; 82550; 84520; 84703; 85025; 85610; 85730; J3010; J7040

== ENCOUNTER → 2024-09-14 | Outpatient (CLI) | payer OTHER, SELFPAY ==
--- NOTE | 2024-09-14 | XR_ITS ---
Examination: AP pelvis single view Technique one AP portable supine pelvis single view Exam date and time: September 14, 2024 1121 hours INDICATIONS: Bone survey August 31, 2024 8mm radiolucency in the intertrochanteric region left hip FINDINGS: No definite osteolytic hip or pelvic lesions on this study IMPRESSION: No definite osteolytic hip or pelvic lesions on this study
--- NOTE | 2024-09-14 09:58 | XR_ITS ---
Examination: AP lordotic chest single view TECHNIQUE: AP lordotic chest single view Exam date and time: September 14, 2024 1114 hours INDICATIONS: History pulmonary nodule FINDINGS: 25 mm nodular density upper midline chest, likely corresponding to calcified mediastinal mass anterior mediastinum on CT chest July 08, 2024, sagittal image 185 No pneumonia or pulmonary edema No pulmonary nodules in the lung warren IMPRESSION:: 25 mm calcified nodular density upper midline chest, likely corresponding to benign calcified mediastinal mass anterior mediastinum on CT chest July 08, 2024
== END | disposition home or self-care (01) ==
PROVIDERS: PCP Family Medicine; Referring Provider Radiology Therapeutic Radiology; Visit Provider Radiology Therapeutic Radiology
DX: R91.8 Other nonspecific abnormal finding of lung field (principal); C81.78 Other Hodgkin lymphoma, lymph nodes of multiple sites
CPT/HCPCS: 71047; 72170

== ENCOUNTER 2024-09-21 10:27 | Outpatient (RCR) | payer OTHER, SELFPAY ==
--- NOTE | 2024-09-21 12:00 | CTCFLWUP_ITS ---
[facility] [address], [place] [address] FOLLOW-UP NOTE Date: 09/21/2024 MR#: [id number] Name: MK TOWNSEND : 1970 Dx: M85.88 Other specified disorders of bone density and structure, other site Identification. Patient with history of Hodgkin's lymphoma diagnosed over 30 years ago 2B treated at [place] with radiation therapy to head and neck and chest sites. Did not get chemotherapy. Treatment related side effect including dental problems and cardiac being followed by Dr. Cook, for coronary artery disease recurrent chest pain unstable angina and abnormal stress test. Recently patient was seen in ER had various scans showed prominent osteolytic lesion right first sacral wing and smaller radiolucency C7. Bone and osseous survey revealed 8 mm radiolucency intertrochanteric region left hip possible left upper lobe nodule. Pelvis x-ray and lordotic view chest did not reveal any new pathology. Prior CT 07/08/2024 revealed noncalcified pulmonary nodules. 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 Most recent CBC 09/07/2024 significant for thrombocytosis 476,000 which has been elevated for years. A#!. Biopsy of sacral mass neurofibroma, benign tumor. I will see her again in 3 months. A#2. Chronic thrombocytosis for many years, most recently 476,000, but as high as 850,000 2 years ago. Refer patient to Dr. Oliveira. A#3. History of Hodgkin's lymphoma treated with 2B full course radiation therapy 30 years ago at [place], chronic cardiac issues attributed seeing Dr. Cook. for coronary artery disease recurrent chest pain and unstable angina. Electronically signed by: Vijay Meier M.D. 09/21/2024 11:58 AM
== END 2024-09-22 23:59 | disposition home or self-care (01) ==
LOC: SCTC 10:27
PROVIDERS: PCP Family Medicine; Referring Provider Family Medicine; Visit Provider Radiology Therapeutic Radiology
DX: D36.16 Benign neoplasm of peripheral nerves and autonomic nervous system of pelvis (principal); D75.839 Thrombocytosis, unspecified; Z85.71 Personal history of Hodgkin lymphoma; Z92.3 Personal history of irradiation
CPT/HCPCS: 99213; G0463

== ENCOUNTER 2024-10-12 08:29 | Outpatient (RCR) | payer OTHER, SELFPAY ==
--- NOTE | 2024-11-12 18:03 | CTCCONSULT_ITS ---
Patient: MK TOWNSEND : 1970 MR#: [id number] Page 2 of 3 CONSULTATION NOTE DATE OF CONSULTATION: 10/12/2024 NAME: MK TOWNSEND ACCOUNT: [id number] : 1970 AGE: 54 REFERRING PHYSICIAN: Zia Oliveira MD PRIMARY PHYSICIAN: Zia Oliveira MD REASON FOR VISIT: Follo up on lymphoma ONCOLOGY HISTORY: DIAGNOSIS: Other specified disorders of bone density and structure, other site [ICD10] M85.88; Other classical Hodgkin lymphoma, lymph nodes of multiple sites [ICD10] C81.78 Patient with history of Hodgkin's lymphoma diagnosed over 30 years ago 2B treated at [place] with radiation therapy to head and neck and chest sites. Did not get chemotherapy. Treatment related side effect including dental problems and cardiac being followed by Dr. Cook, for coronary artery disease recurrent chest pain unstable angina and abnormal stress Recently patient was seen in ER had various scans showed prominent osteolytic lesion right first sacral wing and smaller radiolucency C7. Bone and osseous survey revealed 8 mm radiolucency intertrochanteric region left hip possible left upper lobe nodule. Pelvis x-ray and lordotic view chest did not reveal any new pathology. Prior CT 07/08/2024 revealed noncalcified pulmonary nodules. 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 TREATMENT HISTORY: Care?Plan Start?Date Cycle Day Intent HISTORY OF PRESENT ILLNESS: 54-year-old male Patient with history of Hodgkin's lymphoma diagnosed over 30 years ago 2B treated at [place] with radiation therapy to head and neck and chest sites. Did not get chemotherapy. Treatment related side effect including dental problems and cardiac being followed by Dr. Cook, for coronary artery disease recurrent chest pain unstable angina and abnormal stress Recently patient was seen in ER had various scans showed prominent osteolytic lesion right first sacral wing and smaller radiolucency C7. Bone and osseous survey revealed 8 mm radiolucency intertrochanteric region left hip possible left upper lobe nodule. Pelvis x-ray and lordotic view chest did not reveal any new pathology. Prior CT 07/08/2024 revealed noncalcified pulmonary nodules. 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 Patient also have thrombocytosis . 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 amiodarone - 200 mg Daily 2. Asprin Ec Low Dose - 81 mg Daily 3. atorvastatin - 40 mg Daily 4. gabapentin - 300 mg Every day before sleep 5. metoprolol tartrate - 100 mg In the evening 6. Plavix - 75 mg Daily 7. ranolazine - 500 mg Twice a Day 8. Synthroid - 175 mcg/24 h Daily Medications Last Reconciled by Sydney Crandall RN on 10/12/2024 ALLERGIES: Morphine sulfate; Midazolam hydrochloride; Benzodiazepines REVIEW OF SYSTEMS: A complete 14-point review of systems was performed and is negative except as noted in interval history. PHYSICAL EXAMINATION: VITAL SIGNS: Temperature?98.9, B/P?144/77, Oxygen?Saturation?96% Weight?207?lbs (Change?since?09/21/24:?8?lbs) PAIN: 3 - Between mild and moderate pain ECOG Performance Status: 0 - Asymptomatic and fully active GENERAL APPEARANCE: Appears well, in no apparent distress, appropriately interactive. HEENT: Normocephalic, no temporal wasting, normal conjunctiva, no scleral icterus, normal hearing, lips without lesions, neck normal range of motion. CARDIOVASCULAR: Not assessed. PULMONARY: Normal respiratory effort, no respiratory distress or use of accessory muscles, speaking in full sentences, no tachypnea. EXTREMITIES: No pedal edema or cyanosis. SKIN: Normal skin appearance. NEUROLOGIC: Alert and oriented x4. PSHYCHIATRIC: Appropriate affect, mood normal, behavior normal, intact thought and speech. LABORATORY DATA: I have personally reviewed and interpreted each of the patient?s relevant lab tests, abnormal findings are below: Date 10/17/24 10/19/24 ??WHITE?BLOOD?COUNT?(Thou/mm3) ? 8.1 ??RED?BLOOD?COUNT?(Miln/mm3) ? 4.25 ??HEMOGLOBIN?(gm/dl) ? 12.2 ??HEMATOCRIT?(%) ? 37.4 ??PLATELET?COUNT?(Thou/mm3) ? 519?H ??NEUTROPHILS?%,?AUTO?(%) ? 53 ??LYMPH?%,?AUTO?(%) ? 35 ??NEUTROPHILS,?AUTO?(Thou/mm3) ? 4.3 ??LDH,?TOTAL?(Unit/L) 209 ? ??RETICULOCYTE?ABSOLUTE?AUTO?(Biln/L) 84.2?H ? ??TOTAL?IRON?BINDING?CAP?(S*)?(mcg/dL) 372 ? ??UNBOUND?IBC?(mcg/dL) 350?H ? ASSESSMENT/PLAN: 1) Thrombocytosis- elevated platelets 2) History of Hodgkin's lymphoma treated with 2B full course radiation therapy 30 years ago at [place], chronic cardiac issues attributed seeing Dr. Cook. for coronary artery disease recurrent chest pain and unstable angina. 3) Biopsy of sacral mass neurofibroma, benign tumor. ORDERS: Order # Description [id number] Refer To: + Hematology [id number] Ferritin + Iron Panel + Reticulocyte Count + Vitamin B-12 + Folic Acid; Serum + Lactate Dehydrogenase (LDH) + Assay Of Haptoglobin Quant + Hereditary Hemochromatosis DNA analysis [id number] Serum Protein Electrophoresis + Serum Immunofixation Electrophoresis + Beta-2 Microglobulin + Quant Immunoglobulins + Free kappa and lambda light chains plus ratio, quantitative [id number] Flowcytometry [id number] TWYLA - 2 Mutation Quant [id number] MD Follow Up 4 Week RETURN TO CLINIC: 4 BILLING AND COMPLIANCE: I reviewed external records from providers outside my specialty as summarized above. I spent a total of 50 minutes on this patient?s care on the day of their visit excluding time spent related to any billed procedures. This time includes time spent with the patient as well as time spent documenting in the medical record, reviewing patients records and tests, obtaining history, placing orders, communicating with other healthcare professionals, counseling the patient, family or caregiver, and/or care coordination for the diagnoses above. Electronically Signed by: Zia Oliveira MD T: 6:01 PM CC: PCP: Zia Oliveira Referring: Zia Oliveira This document was completed utilizing speech recognition software. Grammatical errors, random word insertions, pronoun errors, and incomplete sentences are an occasional consequence of this system due to software limitations, ambient noise, and hardware issues. Any formal questions or concerns about the content, text or information contained within the body of this dictation should be directly addressed to the provider for clarification.
== END 2024-10-23 23:59 | disposition home or self-care (01) ==
LOC: SCTC 08:29
PROVIDERS: PCP Family Medicine; Referring Provider Internal Medicine Hematology & Oncology; Visit Provider Internal Medicine Hematology & Oncology
DX: Z08 Encounter for follow-up examination after completed treatment for malignant neoplasm (principal); Z85.71 Personal history of Hodgkin lymphoma; Z92.3 Personal history of irradiation; D75.839 Thrombocytosis, unspecified; D36.16 Benign neoplasm of peripheral nerves and autonomic nervous system of pelvis
CPT/HCPCS: 99213; G0463

== ENCOUNTER → 2024-10-17 | Outpatient (CLI) | payer OTHER, SELFPAY ==
[2024-10-17 14:38] LABS: Misc Send Out* See Sep Rpt
[2024-10-17 15:12] LABS: Immature Reticulocyte Fraction 22.6 % (3.0-15.9); Reticulocyte % (Auto) 1.9 % (0.5-1.5); Reticulocyte Absolute Auto 84.2 Biln/L (25.0-75.0); Reticulocyte Hgb Content 30.3 pg (28.0-35.0)
[2024-10-17 15:57] LABS: LDH (Lactate Dehydrogenase) 209 U/L (120-246)
[2024-10-17 16:25] LABS: Vitamin B12 650 pg/mL (211-911)
[2024-10-17 19:01] LABS: Ferritin 17 ng/mL (7.3-270.7); Iron 22 mcg/dL (50-170); Percent Iron Saturation 5 % (20-55); Total Iron Binding Capacity 372 mcg/dL (250-425); Unsaturated Iron Binding 350 (225-295)
[2024-10-24 22:03] LABS: Albumin 3.8 g/dL (3.8-4.8); Alpha-1-Globulin 0.3 g/dL (0.2-0.3); Alpha-2-Globulin 0.9 g/dL (0.5-0.9); Beta-1-Globulin 0.5 g/dL (0.4-0.6); Beta-2-globulin 0.5 g/dL (0.2-0.5); Gamma Globulin 1.1 g/dL (0.8-1.7); HSV1 IgG Type Specific Ab >58.00 INDEX; Immunoglobulin A 345 mg/dL (47-310); Immunoglobulin G 1202 mg/dL (600-1640); Kappa Light Chain, Free 27.6 mg/L (3.3-19.4); Lambda Light Chain, Free 26.8 mg/L (5.7-26.3)
[2024-10-25 06:43] LABS: HSV2 IgG Type Specific Ab <0.90 INDEX; Haptoglobin* 171 mg/dL (43-212); Immunoglobulin M 58 mg/dL (50-300); Kappa/Lambda, Free Ratio 1.03 (0.26-1.65); Protein, total, serum 7.2 g/dL (6.1-8.1)
== END | disposition home or self-care (01) ==
LOC: SCTO 14:09
PROVIDERS: PCP Family Medicine; Referring Provider Internal Medicine Hematology & Oncology; Visit Provider Internal Medicine Hematology & Oncology
DX: M85.88 Other specified disorders of bone density and structure, other site (principal); C81.78 Other Hodgkin lymphoma, lymph nodes of multiple sites
CPT/HCPCS: 36415; 82232; 82607; 82728; 82746; 82784; 83010; 83521; 83540; 83550; 83615; 84155; 84165; 85046; 86334; 86695; 86696

== ENCOUNTER → 2024-10-19 | Outpatient (CLI) | payer OTHER, SELFPAY ==
[2024-10-19 08:28] LABS: Flow Cytometry* See Sep Rpt; Misc Send Out* See Sep Rpt
[2024-10-19 09:32] LABS: Basophils # (Auto) 0.1 Thou/mm3 (0.0-0.2); Basophils % (Auto) 1 % (0-2.5); Eosinophils # (Auto) 0.3 Thou/mm3 (0.0-0.5); Eosinophils % (Auto) 4 % (0-10); Hematocrit 37.4 % (36.0-46.0); Hemoglobin 12.2 g/dL (12.0-16.0); Immature Granulocytes % (Auto) 0 % (0-0); Immature Granulocytes Auto 0.02 Thou/mm3 (0.00-0.00); Lymphocytes # (Auto) 2.9 Thou/mm3 (1.0-4.8); Lymphocytes % (Auto) 35 % (10-50); Mean Corpuscular HGB Conc 32.6 g/dl (31.0-37.0); Mean Corpuscular Hemoglobin 28.7 pg (25.0-35.0); Mean Corpuscular Volume 88 fL (80-100); Monocytes # (Auto) 0.6 Thou/mm3 (0.0-0.8); Monocytes % (Auto) 7 % (0-12); Neutrophils # (Auto) 4.3 Thou/mm3 (1.8-7.7); Neutrophils % (Auto) 53 % (37-80); Nucleated Red Blood Cell % 0 /100 WBC (0); Platelet Count 519 Thou/mm3 (140-440); RDW Standard Deviation 49.4 fL (36.4-46.3); Red Blood Count 4.25 Miln/mm3 (4.00-5.20); White Blood Count 8.1 Thou/mm3 (3.6-11.0)
== END | disposition home or self-care (01) ==
LOC: SCTO 08:03
PROVIDERS: PCP Family Medicine; Referring Provider Internal Medicine Hematology & Oncology; Visit Provider Internal Medicine Hematology & Oncology
DX: M85.88 Other specified disorders of bone density and structure, other site (principal); C81.78 Other Hodgkin lymphoma, lymph nodes of multiple sites
CPT/HCPCS: 36415; 85025

== ENCOUNTER 2024-11-27 15:46 | Outpatient (RCR) | payer OTHER, SELFPAY ==
--- NOTE | 2024-11-28 06:47 | CTCFLWUP_ITS ---
Patient: MK MALHOTRA : 1970 Page 4 of 6 FOLLOW UP NOTE DATE OF SERVICE: 11/27/2024 NAME: MK MALHOTRA ACCOUNT: [id number] : 1970 AGE: 54 INTERVAL HISTORY: Mk Malhotra, a female with history of melanoma and radiation treatment, presented with skin lesions present for 4 months and sun damage. She has iron deficiency anemia (ferritin 17, saturation 5%) with reactive thrombocytosis (platelets 476). After 6 months of oral iron supplementation, plan includes switching to IV iron infusions (10-15 weekly treatments with Pepcid, Benadryl, and steroid premedication), dermatology referral for skin examination, zinc oxide application for skin healing, and continued compression stockings for venous insufficiency. Chief Complaint Skin lesion on back present for 4 months, sun damage on skin History of Present Illness Mk Malhotra, a patient with a history of melanoma and radiation treatment, presents for follow-up of elevated platelets and iron deficiency. She reports the development of new skin lesions over the past 4 months. The patient notes several skin concerns. She has a raised, round lesion that she can feel when touched. Additionally, she mentions areas of sun damage and a scratchy area that may have been irritated by her nails. These skin changes appeared approximately 4 months ago and are causing her concern due to her history of melanoma. Ms. Malhotra has been taking oral iron supplements for the past 6 months to address her iron deficiency. She denies having menstrual periods. The patient wears compression stockings all day for varicose veins, which can be bothersome at times. Medical History - History of melanoma - Iron deficiency anemia - Radiation treatment (possibly related to cancer treatment) - Postmenopausal (no longer having periods) Medications and Supplements - Oral iron - Taking for 6 months - Zinc oxide - Applied topically for skin issues Social History - Sun Exposure: Patient has high risk of melanoma due to eye color; advised to wear good shade in the sun - Occupation: Patient spends time on feet, suggesting an occupation requiring standing Review of Systems Skin: Positive for sun damage, raised lesion. Genitourinary: Negative for menstrual periods. Musculoskeletal: Positive for leg discomfort. Physical Examination HEENT: Eyes noted to be at high risk for melanoma due to color. Skin: Raised, round lesion observed on patient's back. Sun damage noted on skin. Scratchy area present, possibly from patient's nails. Multiple chamorro observed on skin, but no suspicious lesions noted. Musculoskeletal: Coarse veins observed on legs. Laboratory, Imaging, and Diagnostic Test Results - Date: Not specified - Peripheral blood flow cytometry: Negative - CBC: - Hemoglobin: Normal (value not specified) - Platelet count: 476 (elevated) - Reticulocyte count: High - [place] lambda chains: Normal - Ferritin: Very low (17) - Light chain ratio: 23 - Iron studies: - Percentage saturation: 5% - Ferritin: 17 - Ketamine: 22 (normal) - Monoglobulin M: 39 - G antibodies: Present (value not specified) - Previous results: - Platelets: Elevated (value not specified) ONCOLOGY HISTORY: DIAGNOSIS: Other specified disorders of bone density and structure, other site [ICD10] M85.88; Other classical Hodgkin lymphoma, lymph nodes of multiple sites [ICD10] C81.78 Patient with history of Hodgkin's lymphoma diagnosed over 30 years ago 2B treated at [place] with radiation therapy to head and neck and chest sites. Did not get chemotherapy. Treatment related side effect including dental problems and cardiac being followed by Dr. Cook, for coronary artery disease recurrent chest pain unstable angina and abnormal stress Recently patient was seen in ER had various scans showed prominent osteolytic lesion right first sacral wing and smaller radiolucency C7. Bone and osseous survey revealed 8 mm radiolucency intertrochanteric region left hip possible left upper lobe nodule. Pelvis x-ray and lordotic view chest did not reveal any new pathology. Prior CT 07/08/2024 revealed noncalcified pulmonary nodules. 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 TREATMENT HISTORY: Care?Plan Start?Date Cycle Day Intent Astrid?she 11/27/2024 1 7 Maintenance HISTORY OF PRESENT ILLNESS: 54-year-old male Patient with history of Hodgkin's lymphoma diagnosed over 30 years ago 2B treated at [place] with radiation therapy to head and neck and chest sites. Did not get chemotherapy. Treatment related side effect including dental problems and cardiac being followed by Dr. Cook, for coronary artery disease recurrent chest pain unstable angina and abnormal stress Recently patient was seen in ER had various scans showed prominent osteolytic lesion right first sacral wing and smaller radiolucency C7. Bone and osseous survey revealed 8 mm radiolucency intertrochanteric region left hip possible left upper lobe nodule. Pelvis x-ray and lordotic view chest did not reveal any new pathology. Prior CT 07/08/2024 revealed noncalcified pulmonary nodules. 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 Patient also have thrombocytosis . 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 Tobacco?Pack?per?Day:?0.5 Tobacco?Use?Years:?20 Tobacco Use:?SMOKES 5-6 CIGARETTES PER DAY ETOH Use:?SOCIAL BEER DRINKER 3 TIMES PER YEAR Drug?Note:?DENIES Social?History?Note:?LIVES?WITH? [employer] HISTORY: Menarche?-?Age:?10 Menopause:?54 Date?LMP:?07/19/2024 Hormone?Use:?USED?BC?PILLS?IN?EARLY?20S :?3 Live?Births:?1 Age?1st?:?31 Gynecological?Note:?2?MISCARRIAGES Gynecological?Note?2:?MAMMOGRAM 5 YEARS AGO MEDICATIONS: 1. amiodarone - 200 mg Daily 2. Asprin Ec Low Dose - 81 mg Daily 3. atorvastatin - 40 mg Daily 4. gabapentin - 300 mg Every day before sleep 5. metoprolol tartrate - 100 mg In the evening 6. Plavix - 75 mg Daily 7. Synthroid - 175 mcg/24 h Daily Medications Last Reconciled by Sandra Esquivel MA on 11/27/2024 ALLERGIES: Morphine sulfate; Midazolam hydrochloride; Benzodiazepines REVIEW OF SYSTEMS: A complete 14-point review of systems was performed and is negative except as noted in interval history. PHYSICAL EXAMINATION: VITAL SIGNS: Temperature?99.1, B/P?164/67, Oxygen?Saturation?97% PAIN: 6 - Severe pain ECOG Performance Status: 0 - Asymptomatic and fully active GENERAL APPEARANCE: Appears well, in no apparent distress, appropriately interactive. HEENT: Normocephalic, no temporal wasting, normal conjunctiva, no scleral icterus, normal hearing, lips without lesions, neck normal range of motion. CARDIOVASCULAR: Not assessed. PULMONARY: Normal respiratory effort, no respiratory distress or use of accessory muscles, speaking in full sentences, no tachypnea. EXTREMITIES: No pedal edema or cyanosis. SKIN: Normal skin appearance. NEUROLOGIC: Alert and oriented x4. PSHYCHIATRIC: Appropriate affect, mood normal, behavior normal, intact thought and speech. LABORATORY DATA: I have personally reviewed and interpreted each of the patient?s relevant lab tests, abnormal findings are below: Date 10/17/24 10/19/24 ??WHITE?BLOOD?COUNT?(Thou/mm3) ? 8.1 ??RED?BLOOD?COUNT?(Miln/mm3) ? 4.25 ??HEMOGLOBIN?(gm/dl) ? 12.2 ??HEMATOCRIT?(%) ? 37.4 ??PLATELET?COUNT?(Thou/mm3) ? 519?H ??NEUTROPHILS?%,?AUTO?(%) ? 53 ??LYMPH?%,?AUTO?(%) ? 35 ??NEUTROPHILS,?AUTO?(Thou/mm3) ? 4.3 ??LDH,?TOTAL?(Unit/L) 209 ? ??RETICULOCYTE?ABSOLUTE?AUTO?(Biln/L) 84.2?H ? ??TOTAL?IRON?BINDING?CAP?(S*)?(mcg/dL) 372 ? ??UNBOUND?IBC?(mcg/dL) 350?H ? ASSESSMENT/PLAN: 1) Thrombocytosis- elevated platelets 2) History of Hodgkin's lymphoma treated with 2B full course radiation therapy 30 years ago at [place], chronic cardiac issues attributed seeing Dr. Cook. for coronary artery disease recurrent chest pain and unstable angina. 3) Biopsy of sacral mass neurofibroma, benign tumor. Mk Malhotra, a female patient with a history of melanoma and radiation treatment, presents for follow-up of elevated platelets and iron deficiency anemia. Iron Deficiency Anemia Assessment: Patient has iron deficiency anemia as evidenced by low ferritin (17) and low iron saturation (5%). Hemoglobin is currently normal, but reticulocyte count is elevated, indicating increased erythropoiesis. Platelet count is elevated at 476, likely reactive thrombocytosis secondary to iron deficiency. Patient reports taking oral iron for 6 months, which has improved platelet count from previous levels. No evidence of multiple myeloma or monoclonal gammopathy based on normal kappa/lambda light chain ratio and absence of monoclonal protein. Plan: - Discontinue oral iron supplementation - Initiate intravenous iron therapy - Order 10-15 weekly iron infusions - Pre-medicate with Pepcid, Benadryl, and steroid before infusions - Monitor for infusion reactions during first 2-3 treatments - Defer blood work until completion of 10 iron infusions - Reassess iron studies in 4 months - Educate patient on: - Importance of light breakfast before infusions - Avoiding blood tests between infusions to ensure insurance coverage - Potential need for future iron supplementation if underlying cause persists History of Melanoma and Radiation-Induced Skin Damage Assessment: Patient has a history of melanoma and radiation treatment, which has resulted in significant skin damage. Current examination reveals sun damage and potentially radiation-induced lesions, but no suspicious lesions suggestive of recurrent melanoma. Patient is at high risk for skin cancer due to eye color and previous history. Plan: - Place dermatology referral for full-body skin examination - Recommend zinc oxide application (diaper rash cream) for skin healing - Educate patient on sun protection measures: - Wear protective clothing and good shade when in sun - Use sunscreen regularly - Follow up with weapons specialist regularly for skin cancer screening Chronic Venous Insufficiency Assessment: Patient reports wearing compression stockings all day for management of coarse veins, likely indicative of chronic venous insufficiency. Plan: - Continue use of compression stockings - Educate patient on venous insufficiency management: - Take frequent breaks and elevate feet - Perform foot massage or use massage machine - Consider sclerotherapy if symptoms worsen or for cosmetic concerns ORDERS: Order # Description [id number] Ferritin + Reticulocyte Count + Folic Acid; Serum + Lactate Dehydrogenase (LDH) + Assay Of Haptoglobin Quant + Vitamin B-12 + Iron Panel RETURN TO CLINIC: BILLING AND COMPLIANCE: I reviewed external records from providers outside my specialty as summarized above. I spent a total of 50 minutes on this patient?s care on the day of their visit excluding time spent related to any billed procedures. This time includes time spent with the patient as well as time spent documenting in the medical record, reviewing patients records and tests, obtaining history, placing orders, communicating with other healthcare professionals, counseling the patient, family or caregiver, and/or care coordination for the diagnoses above. Electronically Signed by: Zia Oliveira MD T: 6:45 AM CC: PCP: Estrella Ballard Referring: Estrella Ballard This document was completed utilizing speech recognition software. Grammatical errors, random word insertions, pronoun errors, and incomplete sentences are an occasional consequence of this system due to software limitations, ambient noise, and hardware issues. Any formal questions or concerns about the content, text or information contained within the body of this dictation should be directly addressed to the provider for clarification.
== END 2024-12-23 23:59 | disposition home or self-care (01) ==
LOC: SCTC 15:46
PROVIDERS: PCP Family Medicine; Referring Provider Family Medicine; Visit Provider Internal Medicine Hematology & Oncology
DX: D75.838 Other thrombocytosis (principal); L98.9 Disorder of the skin and subcutaneous tissue, unspecified; D50.9 Iron deficiency anemia, unspecified; Z85.820 Personal history of malignant melanoma of skin; Z92.3 Personal history of irradiation; Z85.71 Personal history of Hodgkin lymphoma; I87.2 Venous insufficiency (chronic) (peripheral)
CPT/HCPCS: 99212; G0463

== ENCOUNTER 2025-01-22 13:24 | Outpatient (RCR) | payer OTHER, SELFPAY | END 2025-01-22 23:59 | disposition home or self-care (01) | LOC: SCTC 13:24 | PROVIDERS: PCP Family Medicine; Referring Provider Family Medicine; Visit Provider Internal Medicine Hematology & Oncology | DX: D50.9 Iron deficiency anemia, unspecified (principal); L98.9 Disorder of the skin and subcutaneous tissue, unspecified; Z85.820 Personal history of malignant melanoma of skin; D75.839 Thrombocytosis, unspecified; Z85.71 Personal history of Hodgkin lymphoma; I87.2 Venous insufficiency (chronic) (peripheral) | CPT/HCPCS: 96365; 96375; A4216; J2916; J2919; J3490; J7040; J7050 ==

== ENCOUNTER 2025-02-19 13:59 | Outpatient (RCR) | payer OTHER, SELFPAY | END 2025-02-22 23:59 | disposition home or self-care (01) | LOC: SCTC 13:59 | PROVIDERS: PCP Family Medicine; Referring Provider Family Medicine; Visit Provider Internal Medicine Hematology & Oncology | DX: D50.9 Iron deficiency anemia, unspecified (principal); L98.8 Other specified disorders of the skin and subcutaneous tissue; D75.839 Thrombocytosis, unspecified; Z85.71 Personal history of Hodgkin lymphoma; Z85.820 Personal history of malignant melanoma of skin; I87.2 Venous insufficiency (chronic) (peripheral) | CPT/HCPCS: 96365; 96375; A4216; J2916; J3490; J7040; J7050 ==

== ENCOUNTER 2025-02-26 08:56 | Outpatient (RCR) | payer OTHER, SELFPAY | END 2025-03-25 23:59 | disposition home or self-care (01) | LOC: SCTC 08:56 | PROVIDERS: PCP Family Medicine; Referring Provider Family Medicine; Visit Provider Internal Medicine Hematology & Oncology | DX: D50.9 Iron deficiency anemia, unspecified (principal); D75.839 Thrombocytosis, unspecified; Z85.820 Personal history of malignant melanoma of skin; Z85.71 Personal history of Hodgkin lymphoma; Z92.3 Personal history of irradiation | CPT/HCPCS: 96365; 96375; J2916; J3490; J7040; J7050 ==

== ENCOUNTER → 2025-03-22 | Outpatient (CLI) | payer OTHER, SELFPAY ==
[2025-03-22 08:54] LABS: Basophils # (Auto) 0.1 Thou/mm3 (0.0-0.2); Basophils % (Auto) 1 % (0-2.5); Eosinophils # (Auto) 0.3 Thou/mm3 (0.0-0.5); Eosinophils % (Auto) 3 % (0-10); Hematocrit 41.6 % (36.0-46.0); Hemoglobin 13.5 g/dL (12.0-16.0); Immature Granulocytes Auto 0.03 Thou/mm3 (0.00-0.00); Immature Reticulocyte Fraction 16.5 % (3.0-15.9); Lymphocytes # (Auto) 3.1 Thou/mm3 (1.0-4.8); Lymphocytes % (Auto) 30 % (10-50); Mean Corpuscular HGB Conc 32.5 g/dl (31.0-37.0); Mean Corpuscular Hemoglobin 30.3 pg (25.0-35.0); Mean Corpuscular Volume 94 fL (80-100); Monocytes # (Auto) 0.7 Thou/mm3 (0.0-0.8); Monocytes % (Auto) 7 % (0-12); Neutrophils # (Auto) 6.1 Thou/mm3 (1.8-7.7); Neutrophils % (Auto) 59 % (37-80); Nucleated Red Blood Cell # 0.00 Thou/mm3 (0.00-0.00); Nucleated Red Blood Cell % 0 /100 WBC (0); Platelet Count 442 Thou/mm3 (140-440); RDW Standard Deviation 50.7 fL (36.4-46.3); Red Blood Count 4.45 Miln/mm3 (4.00-5.20); Reticulocyte % (Auto) 2.0 % (0.5-1.5); Reticulocyte Absolute Auto 89.4 Biln/L (25.0-75.0); Reticulocyte Hgb Content 33.6 pg (28.0-35.0); White Blood Count 10.3 Thou/mm3 (3.6-11.0)
[2025-03-22 08:56] LABS: Ferritin 87 ng/mL (7.3-270.7); Iron 58 mcg/dL (50-170); Percent Iron Saturation 19 % (20-55); Total Iron Binding Capacity 294 mcg/dL (250-425); Unsaturated Iron Binding 236 (225-295)
[2025-03-22 09:03] LABS: Folate 6.07 ng/mL (>5.38); Vitamin B12 425 pg/mL (211-911)
[2025-03-22 09:18] LABS: Alanine Aminotransferase 15 U/L (10-49); Albumin, Serum 4.1 gm/dL (3.5-5.0); Albumin/Globulin Ratio 2.0 (1.2-2.2); Alkaline Phosphatase 84 U/L (46-116); Anion Gap 8 (7-16); Aspartate Amino Transferase 19 U/L (0-34); BUN/Creatinine Ratio 19 Ratio (12-20); Bilirubin,Total 0.4 mg/dL (0.3-1.2); Blood Urea Nitrogen 17 mg/dL (9-23); Calcium 9.9 mg/dL (8.3-10.6); Calcium (Corrected) 9.9 mg/dL (8.5-10.1); Carbon Dioxide 32.3 mMol/L (20.0-31.0); Chloride 104 mMol/L (98-107); Creatinine (Component) 0.9 mg/dL (0.6-1.3); Globulin 2.1 gm/dL (2.3-3.5); Glucose 107 mg/dL (74-106); LDH (Lactate Dehydrogenase) 163 U/L (120-246); Osmolality,Calculated 288 (275-295); Potassium 3.6 mMol/L (3.4-5.1); Sodium 144 mMol/L (136-145); Total Protein 6.2 gm/dL (5.7-8.2); eGFR > 60 See Note
[2025-04-02 08:47] LABS: Haptoglobin* 239 mg/dL (43-212)
== END | disposition home or self-care (01) ==
LOC: SCTO 07:37
PROVIDERS: PCP Family Medicine; Referring Provider Internal Medicine Hematology & Oncology; Visit Provider Internal Medicine Hematology & Oncology
DX: M85.88 Other specified disorders of bone density and structure, other site (principal); C81.78 Other Hodgkin lymphoma, lymph nodes of multiple sites
CPT/HCPCS: 36415; 80053; 82607; 82728; 82746; 83010; 83540; 83550; 83615; 85025; 85046

== ENCOUNTER 2025-04-23 08:47 | Outpatient (RCR) | payer OTHER, SELFPAY ==
--- NOTE | 2025-04-02 00:46 | CTCFLWUP_ITS ---
Patient: MK MALHOTRA : 1970 Page 4 of 6 FOLLOW UP NOTE DATE OF SERVICE: 03/29/2025 NAME: MK MALHOTRA ACCOUNT: [id number] : 1970 AGE: 54 INTERVAL HISTORY: Mk Malhotra, a female with history of melanoma and radiation treatment, presented with skin lesions present for 4 months and sun damage. She has iron deficiency anemia (ferritin 17, saturation 5%) with reactive thrombocytosis (platelets 476). After 6 months of oral iron supplementation, plan was switched to IV iron infusions (10-15 weekly treatments with Pepcid, Benadryl, and steroid premedication), dermatology referral for skin examination, zinc oxide application for skin healing, and continued compression stockings for venous insufficiency. Patient received IV iron and felt better. Patient was not given her oral infusions and iron studies show persistent deficiency even though improved. Advised to continue her infusions and follow-up with dermatology history of Present Illness Mk Malhotra, a patient with a history of melanoma and radiation treatment, presents for follow-up of elevated platelets and iron deficiency. She reports the development of new skin lesions over the past 4 months. The patient notes several skin concerns. She has a raised, round lesion that she can feel when touched. Additionally, she mentions areas of sun damage and a scratchy area that may have been irritated by her nails. These skin changes appeared approximately 4 months ago and are causing her concern due to her history of melanoma. Ms. Malhotra has been taking oral iron supplements for the past 6 months to address her iron deficiency. She denies having menstrual periods. The patient wears compression stockings all day for varicose veins, which can be bothersome at times. Medical History - History of melanoma - Iron deficiency anemia - Radiation treatment (possibly related to cancer treatment) - Postmenopausal (no longer having periods) Medications and Supplements - Oral iron - Taking for 6 months - Zinc oxide - Applied topically for skin issues Social History - Sun Exposure: Patient has high risk of melanoma due to eye color; advised to wear good shade in the sun - Occupation: Patient spends time on feet, suggesting an occupation requiring standing Review of Systems Skin: Positive for sun damage, raised lesion. Genitourinary: Negative for menstrual periods. Musculoskeletal: Positive for leg discomfort. Physical Examination HEENT: Eyes noted to be at high risk for melanoma due to color. Skin: Raised, round lesion observed on patient's back. Sun damage noted on skin. Scratchy area present, possibly from patient's nails. Multiple chamorro observed on skin, but no suspicious lesions noted. Musculoskeletal: Coarse veins observed on legs. Laboratory, Imaging, and Diagnostic Test Results - Date: Not specified - Peripheral blood flow cytometry: Negative - CBC: - Hemoglobin: Normal (value not specified) - Platelet count: 476 (elevated) - Reticulocyte count: High - [place] lambda chains: Normal - Ferritin: Very low (17) - Light chain ratio: 23 - Iron studies: - Percentage saturation: 5% - Ferritin: 17 - Ketamine: 22 (normal) - Monoglobulin M: 39 - G antibodies: Present (value not specified) - Previous results: - Platelets: Elevated (value not specified) ONCOLOGY HISTORY: DIAGNOSIS: Other specified disorders of bone density and structure, other site [ICD10] M85.88; Other classical Hodgkin lymphoma, lymph nodes of multiple sites [ICD10] C81.78 Patient with history of Hodgkin's lymphoma diagnosed over 30 years ago 2B treated at [place] with radiation therapy to head and neck and chest sites. Did not get chemotherapy. Treatment related side effect including dental problems and cardiac being followed by Dr. Cook, for coronary artery disease recurrent chest pain unstable angina and abnormal stress Recently patient was seen in ER had various scans showed prominent osteolytic lesion right first sacral wing and smaller radiolucency C7. Bone and osseous survey revealed 8 mm radiolucency intertrochanteric region left hip possible left upper lobe nodule. Pelvis x-ray and lordotic view chest did not reveal any new pathology. Prior CT 07/08/2024 revealed noncalcified pulmonary nodules. 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 TREATMENT HISTORY: Care?Plan Start?Date Cycle Day Intent Astrid?she 12/25/2024 3 7 Maintenance HISTORY OF PRESENT ILLNESS: 54-year-old male Patient with history of Hodgkin's lymphoma diagnosed over 30 years ago 2B treated at [place] with radiation therapy to head and neck and chest sites. Did not get chemotherapy. Treatment related side effect including dental problems and cardiac being followed by Dr. Cook, for coronary artery disease recurrent chest pain unstable angina and abnormal stress Recently patient was seen in ER had various scans showed prominent osteolytic lesion right first sacral wing and smaller radiolucency C7. Bone and osseous survey revealed 8 mm radiolucency intertrochanteric region left hip possible left upper lobe nodule. Pelvis x-ray and lordotic view chest did not reveal any new pathology. Prior CT 07/08/2024 revealed noncalcified pulmonary nodules. 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 Patient also have thrombocytosis . 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 Tobacco?Pack?per?Day:?0.5 Tobacco?Use?Years:?20 Tobacco Use:?SMOKES 5-6 CIGARETTES PER DAY ETOH Use:?SOCIAL BEER DRINKER 3 TIMES PER YEAR Drug?Note:?DENIES Social?History?Note:?LIVES?WITH? [employer] HISTORY: Menarche?-?Age:?10 Menopause:?54 Date?LMP:?07/19/2024 Hormone?Use:?USED?BC?PILLS?IN?EARLY?20S :?3 Live?Births:?1 Age?1st?:?31 Gynecological?Note:?2?MISCARRIAGES Gynecological?Note?2:?MAMMOGRAM 5 YEARS AGO MEDICATIONS: 1. amiodarone - 200 mg Daily 2. Asprin Ec Low Dose - 81 mg Daily 3. CoQmax Ubiquinol - 200 mg 1.5 Capsule Daily 4. Crestor - 10 mg 1 tab Daily 5. gabapentin - 300 mg Every day before sleep 6. hydrochlorothiazide - 25 mg 1 tab Daily 7. metoprolol succinate - 50 mg 1 tab Twice a Day 8. Plavix - 75 mg Daily 9. Synthroid - 200 mcg 1 tab Daily Medications Last Reconciled by Sandra Esquivel MA on 03/29/2025 ALLERGIES: Morphine sulfate; Midazolam hydrochloride; Benzodiazepines REVIEW OF SYSTEMS: A complete 14-point review of systems was performed and is negative except as noted in interval history. PHYSICAL EXAMINATION: VITAL SIGNS: Temperature?98.9, B/P?146/72, Oxygen?Saturation?96% Weight?207?lbs PAIN: 0 - No pain ECOG Performance Status: 2 - Symptomatic; ambulatory; capable of self-care; >50% of waking hrs. not in bed GENERAL APPEARANCE: Appears well, in no apparent distress, appropriately interactive. HEENT: Normocephalic, no temporal wasting, normal conjunctiva, no scleral icterus, normal hearing, lips without lesions, neck normal range of motion. CARDIOVASCULAR: Not assessed. PULMONARY: Normal respiratory effort, no respiratory distress or use of accessory muscles, speaking in full sentences, no tachypnea. EXTREMITIES: No pedal edema or cyanosis. SKIN: Normal skin appearance. NEUROLOGIC: Alert and oriented x4. PSHYCHIATRIC: Appropriate affect, mood normal, behavior normal, intact thought and speech. LABORATORY DATA: I have personally reviewed and interpreted each of the patient?s relevant lab tests, abnormal findings are below: Date 03/22/25 ??GLUCOSE,RANDOM?(mg/dL) 107?H ??BLOOD?UREA?NITROGEN?(mg/dL) 17 ??CREATININE?(mg/dL) 0.90 ??SODIUM?(mmol/L) 144 ??POTASSIUM?(mmol/L) 3.6 ??CHLORIDE?(mmol/L) 104 ??CrCl?(CandG)?(ml/min) 83.02 ??AST/SGOT?(Unit/L) 19 ??ALT/SGPT?(Unit/L) 15 ??ALKALINE?PHOSPHATASE?(Unit/L) 84 ??BILIRUBIN,?TOTAL?(mg/dL) 0.4 ??PROTEIN?TOTAL?(gm/dl) 6.2 ??ALBUMIN,?SERUM?(gm/dl) 4.1 ??GLOBULIN?(gm/dl) 2.1?L ??ALBUMIN/GLOBULIN?RATIO 2.0 ??CALCIUM,?SERUM?(mg/dL) 9.9 ??CALCIUM?SERUM?(CORRECTED)?(mg/dL) 9.9 ??LDH,?TOTAL?(Unit/L) 163 ??RETICULOCYTE?ABSOLUTE?AUTO?(Biln/L) 89.4?H ??TOTAL?IRON?BINDING?CAP?(S*)?(mcg/dL) 294 ??UNBOUND?IBC?(mcg/dL) 236 ASSESSMENT/PLAN: 1) Thrombocytosis- elevated platelets 2) History of Hodgkin's lymphoma treated with 2B full course radiation therapy 30 years ago at [place], chronic cardiac issues attributed seeing Dr. Cook. for coronary artery disease recurrent chest pain and unstable angina. 3) Biopsy of sacral mass neurofibroma, benign tumor. Mk Malhotra, a female patient with a history of melanoma and radiation treatment, presents for follow-up of elevated platelets and iron deficiency anemia. Iron Deficiency Anemia Patient received intravenous iron Her thrombocytosis have improved Fatigue have improved Patient need to complete her full iron infusions Her iron labs showed lower iron saturation Continue iron infusions History of melanoma -Patient have appointment with dermatology and advised to follow-up with them - Recommend zinc oxide application (diaper rash cream) for skin healing - Educate patient on sun protection measures: - Wear protective clothing and good shade when in sun - Use sunscreen regularly - Follow up with manager of security regularly for skin cancer screening Chronic Venous Insufficiency Assessment: Patient reports wearing compression stockings all day for management of coarse veins, likely indicative of chronic venous insufficiency. Plan: - Continue use of compression stockings - Educate patient on venous insufficiency management: - Take frequent breaks and elevate feet - Perform foot massage or use massage machine - Consider sclerotherapy if symptoms worsen or for cosmetic concerns ORDERS: Order # Description [id number] + Follow Up 4 Month [id number] Ferritin + Reticulocyte Count + Folic Acid; Serum + Lactate Dehydrogenase (LDH) + Assay Of Haptoglobin Quant + Vitamin B-12 + Iron Panel [id number] Ferritin + Iron Panel + Vitamin B-12 + Folic Acid; Serum RETURN TO CLINIC: I reviewed the diagnosis, prognosis, and recommended treatment/procedure options with the patient (and/or their legal patient relations representative), including the potential benefits, risks, side effects and alternative therapies. We also discussed the option of no treatment and the possibility of clinical trial participation, if applicable. All questions were addressed, and they demonstrated understanding. They provided informed consent to proceed with the proposed plan of care. BILLING AND COMPLIANCE: I reviewed external records from providers outside my specialty as summarized above. I spent a total of 50 minutes on this patient?s care on the day of their visit excluding time spent related to any billed procedures. This time includes time spent with the patient as well as time spent documenting in the medical record, reviewing patients records and tests, obtaining history, placing orders, communicating with other healthcare professionals, counseling the patient, family or caregiver, and/or care coordination for the diagnoses above. Electronically Signed by: Zia Oliveira MD T: 12:44 AM CC: PCP: Estrella Ballard Referring: Estrella Ballard This document was completed utilizing speech recognition software. Grammatical errors, random word insertions, pronoun errors, and incomplete sentences are an occasional consequence of this system due to software limitations, ambient noise, and hardware issues. Any formal questions or concerns about the content, text or information contained within the body of this dictation should be directly addressed to the provider for clarification.
== END 2025-04-24 23:59 | disposition home or self-care (01) ==
LOC: SCTC 08:47
PROVIDERS: PCP Family Medicine; Referring Provider Family Medicine; Visit Provider Internal Medicine Hematology & Oncology
DX: D50.9 Iron deficiency anemia, unspecified (principal); L98.8 Other specified disorders of the skin and subcutaneous tissue; D75.839 Thrombocytosis, unspecified; I87.2 Venous insufficiency (chronic) (peripheral); Z85.820 Personal history of malignant melanoma of skin; Z85.71 Personal history of Hodgkin lymphoma; Z92.3 Personal history of irradiation
CPT/HCPCS: 96365; 96375; 99212; A4216; J2916; J3490; J7040; G0463

== ENCOUNTER → 2025-04-23 | Outpatient (CLI) | payer OTHER, SELFPAY ==
[2025-04-23 09:36] LABS: Alanine Aminotransferase 12 U/L (10-49); Albumin, Serum 4.3 gm/dL (3.5-5.0); Alkaline Phosphatase 75 U/L (46-116); Aspartate Amino Transferase 18 U/L (0-34); Bilirubin,Direct 0.1 mg/dL (0.0-0.3); Bilirubin,Total 0.4 mg/dL (0.3-1.2); Cardiac Risk Estimate 2.5 RATIO (3.7-5.6); Cholesterol 132 mg/dL (132-200); HDL Cholesterol 52 mg/dL (40-60); LDL Cholesterol,Calculated 56 mg/dL (0-130); Total Protein 6.7 gm/dL (5.7-8.2); Triglycerides 120 mg/dL (30-150)
== END | disposition home or self-care (01) ==
LOC: COPL 08:10
PROVIDERS: PCP Family Medicine; Referring Provider Internal Medicine Cardiovascular Disease; Visit Provider Internal Medicine Cardiovascular Disease
DX: I25.118 Atherosclerotic heart disease of native coronary artery with other forms of angina pectoris (principal)
CPT/HCPCS: 36415; 80061; 80076

== ENCOUNTER → 2025-05-28 | Outpatient (CLI) | payer OTHER, SELFPAY ==
[2025-05-28 16:24] LABS: Basophils # (Auto) 0.1 Thou/mm3 (0.0-0.2); Basophils % (Auto) 1 % (0-2.5); Eosinophils # (Auto) 0.2 Thou/mm3 (0.0-0.5); Eosinophils % (Auto) 1 % (0-10); Hematocrit 35.5 % (36.0-46.0); Hemoglobin 11.6 g/dL (12.0-16.0); Immature Granulocytes Auto 0.05 Thou/mm3 (0.00-0.00); Immature Reticulocyte Fraction 25.7 % (3.0-15.9); Lymphocytes # (Auto) 3.1 Thou/mm3 (1.0-4.8); Lymphocytes % (Auto) 23 % (10-50); Mean Corpuscular HGB Conc 32.7 g/dl (31.0-37.0); Mean Corpuscular Hemoglobin 30.3 pg (25.0-35.0); Mean Corpuscular Volume 93 fL (80-100); Monocytes # (Auto) 1.1 Thou/mm3 (0.0-0.8); Monocytes % (Auto) 8 % (0-12); Neutrophils # (Auto) 8.9 Thou/mm3 (1.8-7.7); Neutrophils % (Auto) 67 % (37-80); Nucleated Red Blood Cell # 0.00 Thou/mm3 (0.00-0.00); Nucleated Red Blood Cell % 0 /100 WBC (0); Platelet Count 556 Thou/mm3 (140-440); RDW Standard Deviation 48.5 fL (36.4-46.3); Red Blood Count 3.83 Miln/mm3 (4.00-5.20); Reticulocyte % (Auto) 3.0 % (0.5-1.5); Reticulocyte Absolute Auto 113.0 Biln/L (25.0-75.0); Reticulocyte Hgb Content 30.3 pg (28.0-35.0); White Blood Count 13.4 Thou/mm3 (3.6-11.0)
[2025-05-28 16:40] LABS: Ferritin 27 ng/mL (7.3-270.7); Folate 5.65 ng/mL (>5.38); Iron 17 mcg/dL (50-170); Percent Iron Saturation 5 % (20-55); Total Iron Binding Capacity 328 mcg/dL (250-425); Unsaturated Iron Binding 311 (225-295); Vitamin B12 435 pg/mL (211-911)
[2025-05-28 16:53] LABS: Alanine Aminotransferase 10 U/L (10-49); Albumin, Serum 4.6 gm/dL (3.5-5.0); Albumin/Globulin Ratio 2.2 (1.2-2.2); Alkaline Phosphatase 92 U/L (46-116); Anion Gap 9 (7-16); Aspartate Amino Transferase 17 U/L (0-34); BUN/Creatinine Ratio 14 Ratio (12-20); Bilirubin,Total 0.5 mg/dL (0.3-1.2); Blood Urea Nitrogen 13 mg/dL (9-23); Calcium 9.0 mg/dL (8.3-10.6); Calcium (Corrected) 9.0 mg/dL (8.5-10.1); Carbon Dioxide 30.7 mMol/L (20.0-31.0); Chloride 102 mMol/L (98-107); Creatinine (Component) 0.9 mg/dL (0.6-1.3); Globulin 2.1 gm/dL (2.3-3.5); Glucose 95 mg/dL (74-106); LDH (Lactate Dehydrogenase) 192 U/L (120-246); Osmolality,Calculated 283 (275-295); Potassium 3.2 mMol/L (3.4-5.1); Sodium 142 mMol/L (136-145); Total Protein 6.7 gm/dL (5.7-8.2); eGFR > 60 See Note
[2025-06-04 06:38] LABS: Haptoglobin* 263 mg/dL (43-212)
== END | disposition home or self-care (01) ==
LOC: SCTO 14:49
PROVIDERS: PCP Family Medicine; Referring Provider Registered Nurse; Visit Provider Internal Medicine Hematology & Oncology
DX: M85.88 Other specified disorders of bone density and structure, other site (principal); C81.78 Other Hodgkin lymphoma, lymph nodes of multiple sites; R21 Rash and other nonspecific skin eruption
CPT/HCPCS: 36415; 80053; 82607; 82728; 82746; 83010; 83540; 83550; 83615; 85025; 85046

== ENCOUNTER → 2025-07-03 | Outpatient (CLI) | payer OTHER, SELFPAY ==
[2025-07-03 09:45] LABS: Basophils # (Auto) 0.1 Thou/mm3 (0.0-0.2); Basophils % (Auto) 1 % (0-2.5); Eosinophils # (Auto) 0.2 Thou/mm3 (0.0-0.5); Eosinophils % (Auto) 3 % (0-10); Hematocrit 36.2 % (36.0-46.0); Hemoglobin 11.3 g/dL (12.0-16.0); Immature Granulocytes Auto 0.02 Thou/mm3 (0.00-0.00); Immature Reticulocyte Fraction 20.1 % (3.0-15.9); Lymphocytes # (Auto) 2.4 Thou/mm3 (1.0-4.8); Lymphocytes % (Auto) 27 % (10-50); Mean Corpuscular HGB Conc 31.2 g/dl (31.0-37.0); Mean Corpuscular Hemoglobin 28.8 pg (25.0-35.0); Mean Corpuscular Volume 92 fL (80-100); Monocytes # (Auto) 0.8 Thou/mm3 (0.0-0.8); Monocytes % (Auto) 8 % (0-12); Neutrophils # (Auto) 5.5 Thou/mm3 (1.8-7.7); Neutrophils % (Auto) 61 % (37-80); Nucleated Red Blood Cell # 0.00 Thou/mm3 (0.00-0.00); Nucleated Red Blood Cell % 0 /100 WBC (0); Platelet Count 462 Thou/mm3 (140-440); RDW Standard Deviation 50.4 fL (36.4-46.3); Red Blood Count 3.92 Miln/mm3 (4.00-5.20); Reticulocyte % (Auto) 2.6 % (0.5-1.5); Reticulocyte Absolute Auto 101.1 Biln/L (25.0-75.0); Reticulocyte Hgb Content 29.3 pg (28.0-35.0); White Blood Count 9.0 Thou/mm3 (3.6-11.0)
[2025-07-03 10:00] LABS: Folate 9.77 ng/mL (>5.38); Vitamin B12 416 pg/mL (211-911)
[2025-07-03 10:01] LABS: Ferritin 18 ng/mL (7.3-270.7); Iron 19 mcg/dL (50-170); Percent Iron Saturation 5 % (20-55); Total Iron Binding Capacity 343 mcg/dL (250-425); Unsaturated Iron Binding 324 (225-295)
[2025-07-03 10:03] LABS: Alanine Aminotransferase 12 U/L (10-49); Albumin, Serum 4.3 gm/dL (3.5-5.0); Albumin/Globulin Ratio 1.6 (1.2-2.2); Alkaline Phosphatase 102 U/L (46-116); Anion Gap 7 (7-16); Aspartate Amino Transferase 17 U/L (0-34); BUN/Creatinine Ratio 23 Ratio (12-20); Bilirubin,Total 0.4 mg/dL (0.3-1.2); Blood Urea Nitrogen 18 mg/dL (9-23); Calcium 9.1 mg/dL (8.3-10.6); Calcium (Corrected) 9.1 mg/dL (8.5-10.1); Carbon Dioxide 31.8 mMol/L (20.0-31.0); Chloride 107 mMol/L (98-107); Creatinine (Component) 0.8 mg/dL (0.6-1.3); Globulin 2.7 gm/dL (2.3-3.5); Glucose 92 mg/dL (74-106); LDH (Lactate Dehydrogenase) 162 U/L (120-246); Osmolality,Calculated 292 (275-295); Potassium 3.8 mMol/L (3.4-5.1); Sodium 146 mMol/L (136-145); Total Protein 7.0 gm/dL (5.7-8.2); eGFR > 60 See Note
[2025-07-10 06:28] LABS: Haptoglobin* 216 mg/dL (43-212)
== END | disposition home or self-care (01) ==
LOC: SCTO 08:47
PROVIDERS: PCP Family Medicine; Referring Provider Internal Medicine Hematology & Oncology; Visit Provider Internal Medicine Hematology & Oncology
DX: M85.88 Other specified disorders of bone density and structure, other site (principal); C81.78 Other Hodgkin lymphoma, lymph nodes of multiple sites
CPT/HCPCS: 36415; 80053; 82607; 82728; 82746; 83010; 83540; 83550; 83615; 85025; 85046

== ENCOUNTER 2025-07-10 13:27 | Outpatient (RCR) | payer OTHER, SELFPAY | END 2025-07-25 23:59 | disposition home or self-care (01) | LOC: SCTC 13:27 | PROVIDERS: PCP Family Medicine; Referring Provider Family Medicine; Visit Provider Internal Medicine Hematology & Oncology | DX: D50.9 Iron deficiency anemia, unspecified (principal); I87.2 Venous insufficiency (chronic) (peripheral); Z92.3 Personal history of irradiation; Z85.820 Personal history of malignant melanoma of skin | CPT/HCPCS: 96365; 96375; J2916; J3490; J7040 ==